=== PATIENT | female | born 1940 | race Caucasian/White ===

== ENCOUNTER 2017-12-18 10:32 | Outpatient (CLI) | payer OTHER ==
[2017-12-18 18:54] VITALS: BP 120/85; TEMP 98.4
== END 2017-12-18 10:33 | disposition home or self-care (01) ==
LOC: LAB 10:32 → OPMED 10:33
PROVIDERS: ATTEND Family Medicine
DX: N18.3 Chronic kidney disease, stage 3 (moderate) (principal); D63.1 Anemia in chronic kidney disease
CPT/HCPCS: 36415; 36430; 83540; 85014; 85018; 86850; 86900; 86922